=== PATIENT | female | born 1985 | race American Indian/Alaskan Native ===

== ENCOUNTER 2019-03-06 19:41 | Emergency (ER) | payer OTHER ==
--- NOTE | 2019-03-06 19:55 | Event Note ---
ED Screening Note Date of service: 03/06/19 Time: 19:53 ED Screening Note: This is a 33 y.o. F. that presents to the ER with vaginal pruritis and pain since yesterday. This initial assessment/diagnostic orders/clinical plan/treatment(s) is/are subject to change based on patients health status, clinical progression and re- assessment by fellow clinical providers in the ED. Further treatment and workup at subsequent clinical providers discretion. Patient/guardian urged not to elope from the ED as their condition may be serious if not clinically assessed and managed. Initial orders include: Pelvic exam Urianalysis, hcg, wet prep and GC
[2019-03-06 19:56] VITALS: BP 107/72
[2019-03-06] MEDS ORDERED: ZITHROMAX PO ONE (21:11)
[2019-03-06] MEDS ORDERED: XYLOCAINE 1% MPF 5 mL INFILTRATI ONE (21:11)
[2019-03-06] MEDS ORDERED: DIFLUCAN PO ONE (21:11)
[2019-03-06] MEDS ORDERED: ROCEPHIN IM ONE (21:11)
[2019-03-06 21:13] LABS: Bilirubin,Urine NEG (Negative); Blood,Urine NEG (Negative); Color,Urine Yellow (Yellow); Mucus,Urine 2+ /HPF; Protein,Urine <15 mg/dL mg/dL (Negative); Urobilinogen,Urine < 2.0 mg/dL (<2.0)
[2019-03-06 21:14] LABS: HCG Qualitative,Urine Negative (Negative)
[2019-03-06] MEDS ORDERED: ZOFRAN ODT PO ONE (22:37)
[2019-03-06] MEDS ORDERED: ZOFRAN IM ONE (23:15)
--- NOTE | 2019-03-06 23:54 | Emergency Department Report ---
ED Female HPI - General Chief complaint: Urogenital-Female Stated complaint: VAGINAL SWELLING Time Seen by Provider: 03/06/19 19:53 Source: patient Mode of arrival: Ambulatory Limitations: No Limitations - History of Present Illness Initial comments: Patient is a A6 33-year-old -[place] female with no past medical history who presents to the ED with content of acute onset persistent severe vaginal itching, vaginal pain and discharge after having unprotected sexual intercourse with a new sexual partner 2 days ago. Patient states that the itching and the pain has been persistent since onset. Patient denies vaginal bleeding, dysuria, urinary frequency and urgency, and abdominal pain, nausea, vomiting, low back pain, fever and chills. MD Complaint: vaginal discharge, possible STD, other (vaginal itching and pain) -: Sudden, days(s) (2) Location: other (vaginal ) Radiation: non-radiating Severity: moderate Severity scale (0 -10): 4 Quality: sharp, burning, aching Consistency: constant Improves with: none Worsens with: none Are you Now?: No Last Menstrual Period: 02/22/19 EDC: 11/29/19 Associated Symptoms: denies other symptoms, vaginal discharge. denies: vaginal bleeding, abdominal pain, nausea/vomiting, fever/chills, headaches, loss of appetite, dysuria, hematuria, rash, seizure, shortness of breath, syncope, weakness - Related Data Sexually active: Yes : 8 Para: 2 A: 6 Allergies Allergy/AdvReac Type Severity Reaction Status Date / Time No Known Allergies Allergy Unverified 03/06/19 19:46 ED Review of Systems ROS: Stated complaint: VAGINAL SWELLING Other details as noted in HPI Constitutional: denies: chills, fever Eyes: denies: eye pain, eye discharge, vision change ENT: denies: ear pain, throat pain Respiratory: denies: cough, shortness of breath, wheezing Cardiovascular: denies: chest pain, palpitations Endocrine: no symptoms reported Gastrointestinal: denies: abdominal pain, nausea, diarrhea Genitourinary: urgency, discharge, other (vaginal itching and burning). denies: dysuria Musculoskeletal: denies: back pain, joint swelling, arthralgia Skin: denies: rash, lesions Neurological: denies: headache, weakness, paresthesias Psychiatric: denies: anxiety, depression Hematological/Lymphatic: denies: easy bleeding, easy bruising ED Past Medical Hx - Past Medical History Previous Medical History?: No - Surgical History Past Surgical History?: No - Social History Smoking Status: Never Smoker Substance Use Type: None ED Physical Exam - General Limitations: No Limitations General appearance: alert, in no apparent distress - Head Head exam: Present: atraumatic, normocephalic, normal inspection - Eye Eye exam: Present: normal appearance, PERRL, EOMI - ENT ENT exam: Present: normal exam, normal orophraynx, mucous membranes moist, TM's normal bilaterally, normal external ear exam - Neck Neck exam: Present: normal inspection, full ROM - Respiratory Respiratory exam: Present: normal lung sounds bilaterally. Absent: respiratory distress, wheezes, rales, chest wall tenderness, accessory muscle use, decreased breath sounds, prolonged expiratory - Cardiovascular Cardiovascular Exam: Present: regular rate, normal rhythm, normal heart sounds. Absent: systolic murmur, diastolic murmur, rubs, gallop - GI/Abdominal GI/Abdominal exam: Present: soft, normal bowel sounds. Absent: tenderness, guarding, rebound, hyperactive bowel sounds, hypoactive bowel sounds, organomegaly - External exam: Present: normal external exam. 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 Absent: tenderness, CVA tenderness (R), CVA tenderness (L), muscle spasm, paraspinal tenderness, vertebral tenderness - Neurological Exam Neurological exam: Present: alert, oriented X3, CN II-XII intact, normal gait, reflexes normal - Psychiatric Psychiatric exam: Present: normal affect, normal mood - Skin Skin exam: Present: warm, dry, intact, normal color. Absent: rash ED Course Vital Signs 03/06/19 19:53 Temperature 99.2 F Pulse Rate 102 H Respiratory 14 Rate Blood Pressure 107/72 O2 Sat by Pulse 99 Oximetry - Reevaluation(s) Reevaluation #1: 03/06/19 23:55 This is a 33-year-old female who presented to the ED with vaginal itching and pain with vaginal discharge after having unprotected sexual intercourse 2 days ago. In the ED, patient is alert and oriented 3 and is not in distress. Urinalysis is unremarkable. Patient was empirically treated for sexual transmitted disease Gonorrhea and chlamydia. Patient had nausea and vomiting after taking the medications. Patient is hemodynamically stable. Patient was offered an intramuscular antiemetic injection but the patient declined. Patient signed out AGAINST MEDICAL ADVICE and left the ED stating that she has to go to work the next day. ED Medical Decision Making - Medical Decision Making This is a 33-year-old female who presented to the ED with vaginal itching and pain with vaginal discharge after having unprotected sexual intercourse 2 days ago. In the ED, patient is alert and oriented 3 and is not in distress. Urinalysis is unremarkable. Patient was empirically treated for sexual transmitted disease Gonorrhea and chlamydia. Patient had nausea and vomiting after taking the medications. Patient is hemodynamically stable. Patient was offered an intramuscular antiemetic injection but the patient declined. Patient signed out AGAINST MEDICAL ADVICE and left the ED stating that she has to go to work the next day. 03/06/19 23:58 - Differential Diagnosis Bacterial vaginosis; UTI; STD; Gonorrhea/Chlamydia Critical care attestation.: If time is entered above; I have spent that time in minutes in the direct care of this critically ill patient, excluding procedure time. ED Disposition Clinical Impression: Bacterial vaginosis, Vaginal itching, Vaginal irritation Disposition: DC-07 LEFT AGAINST MED ADVICE Is pt being admited?: No Does the pt Need Aspirin: No Condition: Stable Instructions: Bacterial Vaginosis (ED) Referrals: PRIMARY CARE, [Primary Care Provider] - 3-5 Days Forms: AMA Form, STI Treatment and Prevention Time of Disposition: 23:15 Print Language: CITIZEN OF [place]
== END 2019-03-06 23:18 | disposition left against medical advice (07) ==
LOC: ED 19:41
DX: N76.0 Acute vaginitis (principal); B96.89 Other specified bacterial agents as the cause of diseases classified elsewhere
CPT/HCPCS: 81001; 81025; 87210; 87591; 96372; 99284; J0696; Q0162